=== PATIENT | male | born 1945 | race Two or more races ===

== ENCOUNTER 2021-05-16 11:09 | Emergency (ER) | payer MEDICARE ==
--- NOTE | 2021-05-16 11:15 | EDM.PDOC ---
ED HPI GENERAL MEDICAL PROBLEM - General Chief Complaint: Neuro Symptoms/Deficits Stated Complaint: STROKE Time Seen by Provider: 05/16/21 11:14 Source of Information: Reports: Patient, Family (Daughter), RN, RN Notes Reviewed History Limitations: Reports: No Limitations - History of Present Illness INITIAL COMMENTS - FREE TEXT/NARRATIVE: Jere is a 75 y/o male who presents to the ED via personal vehicle with daughter for complaints of LUE numbness and weakness. The patient reports he first noted his symptoms last night at approximately 2100 when he attempted to get out of his bed and fell to the floor due to weakness. He denies loss of consciousness during the fall and did not strike his head; he is not taking any blood thinners. The patient reports he was assisted back to bed by his family members and went to sleep. The patient states he became worried when he woke this morning and his LUE weakness persisted. He denies recent illness, fever, shaking chills, chest pain, palpitations, shortness of breath, nausea, vomiting, or diarrhea. He does attest to decrease in urine output over the past week. His last meal was yesterday evening. - Related Data Allergies Allergy/AdvReac Type Severity Reaction Status Date / Time No Known Allergies Allergy Verified 08/30/16 11:39 Home Meds: Home Meds Losartan [Cozaar] 1 tab PO DAILY 01/09/17 [History] Metoprolol Succinate [Toprol XL] 1 tab PO DAILY 01/09/17 [History] Past Medical History Cardiovascular History: Reports: Hypertension Respiratory History: Reports: Other (See Below) Other Respiratory History: Latent tuberculosis Gastrointestinal History: Reports: Cirrhosis, Hepatitis Hematologic History: Reports: Other (See Below) Other Hematologic History: thrombocytopenia - Infectious Disease History Infectious Disease History: Reports: Hepatitis C, Other (See Below) Other Infectious Disease History: latent tuberculosis ED ROS GENERAL - Review of Systems Review Of Systems: Comprehensive ROS is negative, except as noted in HPI. ED EXAM, NEURO - Physical Exam Exam: See Below Exam Limited By: No Limitations General Appearance: Alert, No Apparent Distress, Thin Eye Exam: Bilateral Eye: EOMI, Normal Inspection, PERRL (3mm) Ears: Normal External Exam, Normal Canal, Hearing Grossly Normal, Normal TMs Nose: Normal Inspection, Normal Mucosa, No Blood Throat/Mouth: Normal Oropharynx (Dry mucous membranes), Normal Voice, No Airway Compromise Head Exam: Atraumatic, Normocephalic, Other (Mild left facial droop) Neck: Normal Inspection, Supple, Non-Tender, Full Range of Motion Respiratory/Chest: No Respiratory Distress, Lungs Clear, Normal Breath Sounds, No Accessory Muscle Use, Chest Non-Tender Cardiovascular: Normal Peripheral Pulses, Regular Rate, Rhythm, No Edema, No Gallop, No JVD, No Murmur, No Rub GI/Abdominal: Normal Bowel Sounds, Soft, Non-Tender, No Distention, No Abnormal Bruit, No Mass, Pelvis Stable (Male) Exam: Deferred Rectal (Males) Exam: Deferred Neurological: Alert, Normal Mood/Affect, Withdraws to Pain, Abnormal Finger to Nose, Abnormal Motor. No: Normal Gait, Abnormal Sensation, Abnormal Light Touch Back Exam: Normal Inspection, Full Range of Motion Extremities: No Pedal Edema, Normal Capillary Refill, Limited Range of Motion (To LUE and LLE) Psychiatric: Normal Affect, Normal Mood Skin Exam: Warm, Dry, Intact, Normal Color, No Rash. No: Cyanosis, Jaundice, Mottled, Pallor #1 Interpretation EKG Date: 05/16/21 Time: 11:34 Rhythm: Other (Sinus bradycardia) Rate (Beats/Min): 55 [place]: Normal P-Wave: Present QRS: Wide (0.12) ST-T: Normal QT: Normal CO/PQ Interval: 0.192 Comparison: NA - No Prior EKG EKG Interpretation Comments: Sinus bradycardia; q-wave in III; No evidence of acute myocardial ischemia Course - Vital Signs Last Recorded V/S: Last Vital Signs Temp 98.2 F 05/16/21 11:12 Pulse 67 05/16/21 11:12 Resp 16 05/16/21 11:12 BP 117/62 05/16/21 11:12 Pulse Ox 100 05/16/21 11:12 - Orders/Labs/Meds Labs: Laboratory Tests 05/16/21 05/16/21 05/16/21 Range/Units 11:19 11:19 11:19 WBC 14.8 H (5.0-10.0) 10^3/uL RBC 3.58 L (4.6-6.2) 10^6/uL Hgb 12.6 L (14.0-18.0) g/dL Hct 34.3 L (40.0-54.0) % MCV 95.8 (80-100) fL MCH 35.2 H (27.0-34.0) pg MCHC 36.7 H (33.0-35.0) g/dL Plt Count 89 L (150-450) 10^3/uL Neut % (Auto) 78.6 H (42.2-75.2) % Lymph % (Auto) 11.0 L (20.5-50.1) % [place] % (Auto) 9.8 H (2-8) % Eos % (Auto) 0.5 L (1.0-3.0) % Baso % (Auto) 0.1 (0.0-1.0) % Add Manual Diff Yes Neutrophils % (Manual) 76 H (42-75) % Band Neutrophils % 4 % Lymphocytes % (Manual) 14 L (20-50) % Monocytes % (Manual) 6 (2-8) % PT 13.1 H (9.0-12.0) SEC INR 1.3 H (0.9-1.2) APTT 29.0 (22.0-34.0) SEC Sodium 139 (136-145) mmol/L Potassium 2.6 L (3.5-5.1) mmol/L Chloride 103 (98-107) mmol/L Carbon Dioxide 24 (21-32) mmol/L Anion Gap 14.6 H (7-13) mEq/L BUN 42 H (7-18) mg/dL Creatinine 2.00 H (0.70-1.30) mg/dL Est Cr Clr Drug Dosing 29.68 mL/min Estimated GFR (MDRD) 33 BUN/Creatinine Ratio 21.0 (No establ ref range) Glucose 116 H (70-99) mg/dL Calcium 8.0 L (8.5-10.1) mg/dL Magnesium 1.6 L (1.8-2.4) mg/dL Total Bilirubin 2.2 H (0.2-1.0) mg/dL AST 299 H (15-37) U/L ALT 61 (16-63) U/L Alkaline Phosphatase 61 (46-116) U/L Troponin I High Sens 28 (<=76) pg/mL C-Reactive Protein 17.5 H (0.0-0.9) mg/dL Total Protein 7.1 (6.4-8.2) g/dL Albumin 2.1 L (3.4-5.0) g/dL Globulin 5.0 Albumin/Globulin Ratio 0.42 TSH, Ultra Sensitive 3.36 (0.36-3.74) uIU/mL Ethyl Alcohol < 3 (0) mg/dL Meds: Medications Discontinued Medications Generic Name Dose Route Start Last Admin Trade Name Freq PRN Reason Stop Dose Admin Potassium Chloride 20 meq/ 100 mls @ 50 mls/hr 05/16/21 12:02 05/16/21 12:37 Premix IV 05/16/21 14:01 25 mls/hr ONETIME ONE Infusion Magnesium Sulfate 2 gm/ Premix 50 mls @ 25 mls/hr 05/16/21 12:02 05/16/21 12:32 IV 05/16/21 14:01 25 mls/hr ONETIME ONE Administration Sodium Chloride 1,000 mls @ 125 mls/hr 05/16/21 12:21 05/16/21 12:29 Normal Saline IV 05/16/21 20:20 125 mls/hr .BOLUS ONE Administration - Radiology Interpretation Free Text/Narrative:: [facility] Final Radiology Report Call: [phone] assistance Online chat: [email or web address] Name: JERE ADAMES Age: 75Years M Date: 05/16/2021 SSN: -- : [id number] Study: CT HEAD WO CONT Requesting Physician: Dulce Vu Images: 144 Addl Studies: Provided Clinical History: r/o stroke; LUE/LLE numbness and weakness Contrast: Without Contrast Medium: Contrast Amount: Contrast Method: Page 1 of 2 PROCEDURE INFORMATION: Exam: CT Head Without Contrast Exam date and time: 05/16/2021 11:19 AM Age: 75 years old Clinical indication: Weakness, extremity; Left; Additional info: R/O stroke; L ue/lle numbness and weakness TECHNIQUE: Imaging protocol: Computed tomography of the head without contrast. Radiation optimization: All CT scans at this facility use at least one of these dose optimization techniques: automated exposure control; mA and/or kV adjustment per patient size (includes targeted exams where dose is matched to clinical indication); or iterative reconstruction. Other technique: STROKE PROTOCOL was implemented. COMPARISON: No relevant prior studies available. FINDINGS: Brain: Prominent sulci. Patchy hypodensity of the cerebral white matter which are nonspecific but likely secondary to microangiopathic changes. Cerebral ventricles: The ventricles are prominent secondary to diffuse volume loss/atrophy. Paranasal sinuses: Visualized sinuses are unremarkable. No fluid levels. Mastoid air cells: Visualized mastoid air cells are well aerated. Bones/joints: Unremarkable. No acute fracture. Soft tissues: Unremarkable. IMPRESSION: Chronic age related changes but no evidence of acute intracranial pathology. ASSESSMENT: ASPECTS ([place] Stroke Program Early CT Score) is 10. Thank you for allowing us to participate in the care of your patient. Dictated and Authenticated by: Deandra Echols MD 05/16/2021 11:35 AM Central Time ([place] & [place]) - Re-Assessments/Exams Free Text/Narrative Re-Assessment/Exam: 05/16/21 NIH 6. Persistent LUE and LLE weakness, left facial droop, and LUE ataxia. Case discussed with Dr. Prince who kindly accepted patient for transfer, however due to limited bed space, patient will go through the ED for CTA. Case discussed with Dr. Conteh who kindly accepted patient for transfer. Findings of examination, lab work, imaging, and conversation with Dr. Prince reviewed with patient and daughter. Patient and daughter verbalized understanding and agreement with the plan of care. Departure - Departure Time of Disposition: 13:18 Disposition: DC/Tfer to Acute Hospital 02 Condition: Fair Clinical Impression: Hypokalemia, Hypomagnesemia, Elevated serum creatinine, Total bilirubin, elevated, Elevated C-reactive protein (CRP), Fall from bed, initial encounter CVA (cerebral vascular accident) Qualifiers: CVA mechanism: unspecified Qualified Code(s): I63.9 - Cerebral infarction, unspecified - Discharge Information Forms: ED Department Discharge, Interfacility Transfer [facility] Sepsis Event Note (ED) - Focused Exam Vital Signs: Vital Signs Temp Pulse Resp BP Pulse Ox 05/16/21 11:12 98.2 F 67 16 117/62 100
[2021-05-16 11:18] VITALS: BP 117/62; PULSE 67
--- NOTE | 2021-05-16 11:35 | CT ---
PROCEDURE INFORMATION: Exam: CT Head Without Contrast Exam date and time: 05/16/2021 11:19 AM Age: 75 years old Clinical indication: Weakness, extremity; Left; Additional info: R/O stroke; Lue/lle numbness and weakness TECHNIQUE: Imaging protocol: Computed tomography of the head without contrast. Radiation optimization: All CT scans at this facility use at least one of these dose optimization techniques: automated exposure control; mA and/or kV adjustment per patient size (includes targeted exams where dose is matched to clinical indication); or iterative reconstruction. Other technique: STROKE PROTOCOL was implemented. COMPARISON: No relevant prior studies available. FINDINGS: Brain: Prominent sulci. Patchy hypodensity of the cerebral white matter which are nonspecific but likely secondary to microangiopathic changes. Cerebral ventricles: The ventricles are prominent secondary to diffuse volume loss/atrophy. Paranasal sinuses: Visualized sinuses are unremarkable. No fluid levels. Mastoid air cells: Visualized mastoid air cells are well aerated. Bones/joints: Unremarkable. No acute fracture. Soft tissues: Unremarkable. IMPRESSION: Chronic age related changes but no evidence of acute intracranial pathology. ASSESSMENT: ASPECTS ([place] Stroke Program Early CT Score) is 10.
[2021-05-16 11:53] LABS: ANION GAP 14.6 mEq/L (7-13); CHLORIDE,CL 103 mmol/L (98-107); SODIUM,NA 139 mmol/L (136-145)
[2021-05-16] MEDS ORDERED: Potassium Chloride 20 MEQ in Premix Bag 1 BAG IV ONE (12:02)
[2021-05-16] MEDS ORDERED: Magnesium Sulfate/Water 2 GM in Premix Bag 1 BAG IV ONE (12:02)
[2021-05-16] MEDS ORDERED: Sodium Chloride 0.9% 1,000 ML IV ONE (12:21)
== END 2021-05-16 13:15 ==
LOC: DL.ED 11:09
DX: I63.9 Cerebral infarction, unspecified (principal); E87.6 Hypokalemia; E83.42 Hypomagnesemia; R74.8 Abnormal levels of other serum enzymes; I10 Essential (primary) hypertension; E80.7 Disorder of bilirubin metabolism, unspecified; R79.82 Elevated C-reactive protein (CRP); Z79.899 Other long term (current) drug therapy; W06.XXXA Fall from bed, initial encounter
CPT/HCPCS: 36415; 70450; 80053; 80307; 83735; 84443; 84484; 85025; 85610; 85730; 86140; 93005; 93010; 96365; 99284; 99285-25; J3475; J3480; J7030

== ENCOUNTER 2021-12-05 13:52 | Emergency (ER) | payer MEDICARE ==
[2021-12-05 14:38] VITALS: BP 109/73; PULSE 58
[2021-12-05 14:56] LABS: ANION GAP 15.3 mEq/L (7-13)
[2021-12-05 15:31] LABS: CORONAVIRUS COVID-19 NAA NEGATIVE (NEGATIVE)
[2021-12-05] MEDS ORDERED: Sodium Chloride 0.9% 1,000 ML IV ONE (15:41)
[2021-12-05] MEDS ORDERED: Lactulose Soln 10 GM/15 ML 30 ML UD Cup PO ONE (15:42)
== END 2021-12-05 19:30 ==
LOC: DL.ED 13:52
DX: K70.11 Alcoholic hepatitis with ascites (principal); K72.90 Hepatic failure, unspecified without coma; E87.5 Hyperkalemia; E72.20 Disorder of urea cycle metabolism, unspecified; I10 Essential (primary) hypertension; Z79.899 Other long term (current) drug therapy; Z20.822 Contact with and (suspected) exposure to COVID-19
CPT/HCPCS: 0240U; 36415; 70450; 71045; 74176; 80053; 80307; 82140; 82150; 83605; 83690; 84484; 85025; 85610; 87040; 93005; 99285; A9270; J7030

== ENCOUNTER 2022-05-06 15:13 | Emergency (ER) | payer MEDICARE ==
[2022-05-06 15:30] VITALS: BP 118/67; PULSE 100
== END 2022-05-06 16:21 | disposition home or self-care (01) ==
LOC: DL.ED 15:13
DX: R18.8 Other ascites (principal); S31.139A Puncture wound of abdominal wall without foreign body, unspecified quadrant without penetration into peritoneal cavity, initial encounter; I10 Essential (primary) hypertension; Z79.899 Other long term (current) drug therapy; Z98.890 Other specified postprocedural states; W26.8XXA Contact with other sharp object(s), not elsewhere classified, initial encounter
CPT/HCPCS: 12001; 99283

== ENCOUNTER 2022-06-14 16:25 | Emergency (ER) | payer MEDICARE ==
[2022-06-14] MEDS ORDERED: Pantoprazole 40 MG Vial ONE ×3 (17:12→20:08)
[2022-06-14] MEDS ORDERED: Pantoprazole 40 MG Vial IVPUSH ONE (17:13)
[2022-06-14] MEDS ORDERED: Octreotide 100 MCG/ML SDV ONE ×2 (17:13→20:07)
[2022-06-14] MEDS ORDERED: Lactated Ringers 1,000 ML IV ONE (17:13)
[2022-06-14] MEDS ORDERED: Ondansetron 4 MG/2 ML SDV IVPUSH ONE ×2 (17:22→19:23)
[2022-06-14] MEDS: Octreotide 100 MCG in Sodium Chloride 0.9% 99 ML IV SCH ×2 (17:29→19:10)
[2022-06-14] MEDS: Ondansetron 4 MG/2 ML SDV IVPUSH ONE ×2 (17:30→17:45)
[2022-06-14 17:31] LABS: PTT,PARTIAL THROMBOPLSTIN TIME 27.7 SEC (22.0-34.0)
[2022-06-14] MEDS: Ondansetron 4 MG/2 ML SDV ONE ×2 (17:32→17:44)
[2022-06-14 17:36] LABS: CHLORIDE,CL 107 mmol/L (98-107); SODIUM,NA 144 mmol/L (136-145)
[2022-06-14 17:37] LABS: ESTIMATED GFR 21 mL/min (>=60)
[2022-06-14] MEDS ORDERED: Octreotide 100 MCG/ML SDV IVPUSH ONE (19:15)
[2022-06-14 19:47] VITALS: BP 101/69; PULSE 95
[2022-06-14] MEDS ORDERED: Pantoprazole 40 MG in Sodium Chloride 0.9% 100 ML IV SCH (20:15)
== END 2022-06-14 20:29 ==
LOC: DL.ED 16:25
DX: K92.0 Hematemesis (principal); I10 Essential (primary) hypertension; Z79.899 Other long term (current) drug therapy; Z20.822 Contact with and (suspected) exposure to COVID-19
CPT/HCPCS: 36415; 36430; 80053; 82140; 82150; 83605; 83690; 84484; 85025; 85610; 85730; 86140; 86850; 86900; 86901; 86920; 86922; 96365; 96366; 96375; 96376; 99285; C9113; J2354; J2405; J3490; J7120; P9016; U0002

== ENCOUNTER 2023-03-15 20:53 | Emergency (ER) | payer MEDICARE ==
[2023-03-15] MEDS ORDERED: Sodium Chloride 0.9% 10 ML Syringe FLUSH PRN (23:30)
[2023-03-15] MEDS ORDERED: Lactulose Soln 10 GM/15 ML 30 ML UD Cup PO ONE (23:35)
[2023-03-15 23:54] LABS: BASOPHILS PERCENT AUTO 2.3 % (0.0-1.0); EOSINOPHILS PERCENT AUTO 7.5 % (1.0-3.0); HEMATOCRIT 24.8 % (40.0-54.0); HEMOGLOBIN 8.5 g/dL (14.0-18.0); LYMPHOCYTES PERCENT AUTO 15.2 % (20.5-50.1); MEAN CORPUSCULAR HEMOGLOBIN 32.1 pg (27.0-34.0); MEAN CORPUSCULAR HGB CONC 34.3 g/dL (33.0-35.0); MEAN CORPUSCULAR VOLUME 93.6 fL (80-100); MONOCYTES PERCENT AUTO 8.8 % (2-8); NEUTROPHILS PERCENT AUTO 66.2 % (42.2-75.2); PLATELET COUNT,PLT 64 10^3/uL (150-450); RED BLOOD CELL COUNT 2.65 10^6/uL (4.6-6.2); WHITE BLOOD CELL COUNT,WBC 3.9 10^3/uL (5.0-10.0)
[2023-03-16 00:12] LABS: ALBUMIN 3.2 g/dL (3.4-5.0); ANION GAP 15.3 mEq/L (7-13); BILIRUBIN TOTAL 2.4 mg/dL (0.2-1.0); BUN/CREATININE RATIO 17.5 (No establ ref range); CALCIUM 8.7 mg/dL (8.5-10.1); CREATININE 2.46 mg/dL (0.70-1.30); EST CRCL DRUG DOSING (CG) 24.26 mL/min; POTASSIUM,K 4.3 mmol/L (3.5-5.1); PROTEIN TOTAL,TP 6.7 g/dL (6.4-8.2)
[2023-03-16 00:14] LABS: A/G RATIO 0.91
[2023-03-16] MEDS ORDERED: Lactulose Soln 10 GM/15 ML 30 ML UD Cup PO ONE ×2 (00:56→01:39)
[2023-03-16 01:41] VITALS: PULSE 77
[2023-03-16 03:02] VITALS: BP 118/62
== END 2023-03-16 02:40 ==
LOC: DL.ED 20:53
DX: K76.82 Hepatic encephalopathy (principal); I10 Essential (primary) hypertension; D61.818 Other pancytopenia; Z85.05 Personal history of malignant neoplasm of liver; Z87.19 Personal history of other diseases of the digestive system
CPT/HCPCS: 36415; 71045; 80053; 82140; 84484; 85025; 93005; 93010; 99291; 99291-25; 99292; A9270-GY; J3490